=== PATIENT | female | born 1960 ===

== ENCOUNTER 2017-07-21 20:43 | Inpatient (IN) | payer BC ==
[~2017-07-21] VITALS: Ht 165.1 cm; Wt 65.5 kg
[2017-07-21] MEDS ORDERED: METHYL SALICYLATE/MENTHOL TOPICAL OINTMENT 29GM TUBE. TP PRN (21:00)
[2017-07-21] MEDS ORDERED: MAG HYDROX/AL HYDROX/SIMETH 30 ML ORAL.SUSP PO PRN (21:00)
[2017-07-21] MEDS ORDERED: MAGNESIUM HYDROXIDE 2,400 MG/30 ML ORAL.SUSP. PO PRN (21:00)
[2017-07-21] MEDS ORDERED: ACETAMINOPHEN 325 MG TABLET PO PRN (21:00)
[2017-07-21] MEDS ORDERED: CHOL500016 PO (21:15)
[2017-07-21] MEDS ORDERED: ASPI-630 PO (21:15)
[2017-07-21] MEDS ORDERED: SENN1TAB15 PO (21:15)
[2017-07-21] MEDS ORDERED: LISI2.5T PO (21:15)
[2017-07-21] MEDS ORDERED: ESZO1TAB9 PO (21:15)
[2017-07-21] MEDS ORDERED: VENL75TA PO (21:15)
[2017-07-21] MEDS ORDERED: POLY17PO5 PO (21:15)
[2017-07-21] MEDS ORDERED: BACL10TA PO (21:15)
[2017-07-21] MEDS ORDERED: ATOR20TA58 PO (21:15)
[2017-07-21] MEDS ORDERED: TRAM50TA PO (21:15)
[2017-07-21] MEDS ORDERED: GABA-586 PO (21:15)
[2017-07-21] MEDS ORDERED: CLOP75TA PO (21:15)
[2017-07-21 22:23] LABS: BASO # 0.1 x10^3/uL (0.0-0.2); BASO % 1 % (0-3); EOS # 0.2 x10^3/uL (0.0-0.7); EOS % 4 % (0-3); HEMATOCRIT 41.1 % (36.0-47.0); HEMOGLOBIN 13.9 g/dL (12.0-15.5); LYMPH # 2.6 x10^3/uL (1.0-4.8); LYMPH % 42 % (24-48); MEAN CORPUSCULAR HEMOGLOBIN 31 pg (25-35); MEAN CORPUSCULAR HGB CONC 34 g/dL (31-37); MEAN CORPUSCULAR VOLUME 91 fL (79-100); MONO # 0.4 x10^3/uL (0.0-1.1); MONO % 6 % (0-9); NEUT % 47 % (31-73); PLATELET COUNT 239 x10^3/uL (140-400); RED BLOOD COUNT 4.53 x10^6/uL (3.50-5.40); RED CELL DISTRIBUTION WIDTH 13.2 % (11.5-14.5); WHITE BLOOD COUNT 6.3 x10^3/uL (4.0-11.0)
[2017-07-21 22:34] LABS: ALBUMIN 3.6 g/dL (3.4-5.0); CALCIUM 9.4 mg/dL (8.5-10.1); CREATININE 0.5 mg/dL (0.6-1.0); GFR 126.3; POTASSIUM 3.7 mmol/L (3.5-5.1); TOTAL BILIRUBIN 0.3 mg/dL (0.2-1.0); TOTAL PROTEIN 7.2 g/dL (6.4-8.2)
[2017-07-21 23:17] VITALS: BP 106/69
[2017-07-21] MEDS: ZOLPIDEM 5 MG TABLET. PO SCH (23:20)
[2017-07-22 06:26] VITALS: BP 115/70
--- NOTE | 2017-07-22 07:50 | EKG ---
[address] [address] Test Date: 2017-07-22 Test Time: 07:32:39 Pat Name: ROVERTO BARR Department: Room: [address] [place] [address] Gender: Automatic Edger: : 1960 Requested By: DOROTA SMITH Order Number: [id number] Reading MD: Don Hodgson MD Measurements Intervals [place] Rate: P: LA: QRS: QRSD: T: QT: QTc: Interpretive Statements SR Electronically Signed On 07-26-2017 14:51:10 CONSTRUCTION SPECIALIST by Don Hodgson MD
[2017-07-22] MEDS ORDERED: VENLAFAXINE 75 MG TABLET. PO SCH (09:00)
[2017-07-22 13:06] LABS: THYROID STIM HORMONE (TSH) 0.024 uIU/mL (0.358-3.740)
--- NOTE | 2017-07-22 15:44 | PDOC1 ---
History of Present Illness Reason for Visit: Depression History of Present Illness Pt sent to [facility] for evaluation in [facility] unit due to suicidal thoughts. She had threatened to cut her wrists. She has a hx of CVA in November 2016, and has expressive aphasia and left hemiplegia because of it. She says her a year ago the day after Murali, and this time of year makes her sad. Today she says she is not wanting to kill herself. She has had a decreased appetite as well. Normally lives alone. She has been getting botox for her spasticities, but says it has not helped much. Denies CP, SOA, fever, n/v, abd pain, diarrhea, bloody stools, headache, sore throat, earache, night sweats, rash, or new numbness/weakness. Allergies: Coded Allergies: No Known Drug Allergies (Unverified , 07/21/17) Review of Systems Review Of Systems Fourteen system , review of systems has been reviewed. See HPI for pertinent positives and negative responses, other mora all other systems are negative, non pertinent or non contributory Allergies: Coded Allergies: No Known Drug Allergies (Unverified , 07/21/17) Medications Current Medications Acetaminophen (Tylenol) 650 mg PRN Q6HRS PRN PO PAIN / TEMP Last administered on 07/21/17 23:42; Start 07/21/17 at 21:00 Multi-Ingredient Ointment (Analgesic [place]) 1 tereso PRN QID PRN TP MUSCLE PAIN; Start 07/21/17 at 21:00 Al Hydroxide/Mg Hydroxide (Mylanta Plus Xs) 15 ml PRN AFTMEALHC PRN PO DYSPEPSIA; Start 07/21/17 at 21:00 Magnesium Hydroxide (Milk Of Magnesia) 2,400 mg PRN QHS PRN PO CONSTIPATION; Start 07/21/17 at 21:00 Venlafaxine HCl (Effexor) 75 mg DAILY PO Last administered on 07/22/17 07:58 ; Start 07/22/17 at 09:00 Zolpidem Tartrate (Ambien) 5 mg QHS PO Last administered on 07/21/17 23:20; Start 07/21/17 at 21:30 Aspirin (Children'S Aspirin) 81 mg DAILY PO ; Start 07/23/17 at 09:00; Status UNV Atorvastatin Calcium (Lipitor) 20 mg QHS PO ; Start 07/22/17 at 21:00; Status UNV Baclofen (Lioresal) 10 mg QID PO ; Start 07/22/17 at 17:00; Status UNV Clopidogrel Bisulfate (Plavix) 75 mg DAILY PO ; Start 07/23/17 at 09:00; Status UNV Gabapentin (Neurontin) 300 mg HS PO ; Start 07/22/17 at 21:00; Status UNV Lisinopril (Prinivil) 2.5 mg DAILY PO ; Start 07/23/17 at 09:00; Status UNV Polyethylene Glycol (miraLAX) 17 gm BID PO ; Start 07/22/17 at 21:00; Status UNV Senna/Docusate Sodium (Senna Plus) 1 tab BID PO ; Start 07/22/17 at 21:00; Status UNV Tramadol HCl (Ultram) 25 mg PRN Q6HRS PRN PO PAIN; Start 07/22/17 at 15:45; Status UNV Non-Formulary Medication 5,000 unit DAILY PRN PO Supplement; Start 07/22/17 at 15:45; Status UNV Active Scripts Active Reported Aspirin 81 Mg Tab.chew 81 Mg PO DAILY Atorvastatin Calcium 20 Mg Tablet 20 Mg PO QHS Baclofen 10 Mg Tablet 10 Mg PO QID Vitamin D3 (Cholecalciferol (Vitamin D3)) 5,000 Unit Tablet 5,000 Unit PO DAILY PRN Clopidogrel (Clopidogrel Bisulfate) 75 Mg Tablet 75 Mg PO DAILY Senna-S Tablet (Sennosides/Docusate Sodium) 1 Each Tablet 1 Tab PO BID Eszopiclone 1 Mg Tablet 1 Mg PO HS Gabapentin 300 Mg Capsule 300 Mg PO HS Lisinopril 2.5 Mg Tablet 2.5 Mg PO DAILY Miralax (Polyethylene Glycol 3350) 17 Gm Powd.pack 17 Gm PO BID Tramadol Hcl (Tramadol HCl) 50 Mg Tablet 25 Mg PO PRN Q6HRS PRN Venlafaxine Hcl 75 Mg Tablet 75 Mg PO DAILY Exam Vital Signs Vital Signs Date Time Temp Pulse Resp B/P (MAP) Pulse Ox O2 Delivery O2 Flow Rate FiO2 07/22/17 06:26 98.2 73 18 115/70 (85) 97 Room Air General Appearance: Alert, Oriented X3, Cooperative, No acute distress HEENT: Atraumatic, PERRLA, EOMI, Mucous membr. moist/pink, Other (Poor dentition; Neck supple, no JVD, no LAD) Respiratory: Clear to auscultation, Normal air movement Heart: Regular rate, Normal S1, Normal S2, No murmurs Abdominal: Normal bowel sounds, Soft, No tenderness, No hepatospenomegaly Extremities: No edema, Normal pulses Skin: No rashes, No breakdown Neuro: Other (expressive aphasia w/ left hemiplegia.) Psych/Mental Status: Mental status NL Assessment/Plan Assessment/Plan 1. Depression w/ SI: Per Dr. Chau. 2. Late effects of CVA: Continue current meds. 3. DVT proph: Pt on Plavix, wheels self in wheelchair, risk of DVT low, risk of bleeding high, no indication for Lovenox. 4. Low TSH: T4/T3 pending. Pt does not take thyroid medication. 5. Abnormal LFT's: Recheck in AM. Likely fatty liver, will consider liver sono if rising. COURSE Allergies Coded Allergies Type Severity Reaction Last Updated Verified No Known Drug Allergies 07/21/17 No Laboratory Tests Test 07/21/17 22:05 White Blood Count 6.3 x10^3/uL (4.0-11.0) Red Blood Count 4.53 x10^6/uL (3.50-5.40) Hemoglobin 13.9 g/dL (12.0-15.5) Hematocrit 41.1 % (36.0-47.0) Mean Corpuscular Volume 91 fL (79-100) Mean Corpuscular Hemoglobin 31 pg (25-35) Mean Corpuscular Hemoglobin Concent 34 g/dL (31-37) Red Cell Distribution Width 13.2 % (11.5-14.5) Platelet Count 239 x10^3/uL (140-400) Neutrophils (%) (Auto) 47 % (31-73) Lymphocytes (%) (Auto) 42 % (24-48) Monocytes (%) (Auto) 6 % (0-9) Eosinophils (%) (Auto) 4 % (0-3) Basophils (%) (Auto) 1 % (0-3) Neutrophils # (Auto) 3.0 x10^3uL (1.8-7.7) Lymphocytes # (Auto) 2.6 x10^3/uL (1.0-4.8) Monocytes # (Auto) 0.4 x10^3/uL (0.0-1.1) Eosinophils # (Auto) 0.2 x10^3/uL (0.0-0.7) Basophils # (Auto) 0.1 x10^3/uL (0.0-0.2) Sodium Level 142 mmol/L (136-145) Potassium Level 3.7 mmol/L (3.5-5.1) Chloride Level 104 mmol/L (98-107) Carbon Dioxide Level 28 mmol/L (21-32) Anion Gap 10 (6-14) Blood Urea Nitrogen 15 mg/dL (7-20) Creatinine 0.5 mg/dL (0.6-1.0) Estimated GFR (Cockcroft-Gault) 126.3 BUN/Creatinine Ratio 30 (6-20) Glucose Level 108 mg/dL (70-99) Calcium Level 9.4 mg/dL (8.5-10.1) Magnesium Level 2.0 mg/dL (1.8-2.4) Iron Level 67 ug/dL (50-170) Total Iron Binding Capacity 272 ug/dL (250-450) Iron Saturation 25 % (15-34) Total Bilirubin 0.3 mg/dL (0.2-1.0) Aspartate Amino Transf (AST/SGOT) 40 U/L (15-37) Alanine Aminotransferase (ALT/SGPT) 90 U/L (14-59) Alkaline Phosphatase 106 U/L (46-116) Total Protein 7.2 g/dL (6.4-8.2) Albumin 3.6 g/dL (3.4-5.0) Albumin/Globulin Ratio 1.0 (1.0-1.7) Triglycerides Level 52 mg/dL (0-150) Cholesterol Level 156 mg/dL (0-200) LDL Cholesterol, Calculated 83 mg/dL (0-100) VLDL Cholesterol, Calculated 10 mg/dL (0-40) Non-HDL Cholesterol Calculated 93 mg/dL (0-129) HDL Cholesterol 63 mg/dL (40-60) Cholesterol/HDL Ratio 2.0 Vitamin B12 Level 476 pg/mL (247-911) 25-Hydroxy Vitamin D Total 43.7 ng/mL (30-100) Thyroid Stimulating Hormone (TSH) 0.024 uIU/mL (0.358-3.740) Current Medications Medications (Trade) Dose Ordered Sig/Cassie Route PRN Reason Start Time Stop Time Status Last Admin Dose Admin Acetaminophen (Tylenol) 650 mg PRN Q6HRS PRN PO PAIN / TEMP 07/21/17 21:00 07/21/17 23:42 Multi-Ingredient Ointment (Analgesic [place]) 1 tereso PRN QID PRN TP MUSCLE PAIN 07/21/17 21:00 Al Hydroxide/Mg Hydroxide (Mylanta Plus Xs) 15 ml PRN AFTMEALHC PRN PO DYSPEPSIA 07/21/17 21:00 Magnesium Hydroxide (Milk Of Magnesia) 2,400 mg PRN QHS PRN PO CONSTIPATION 07/21/17 21:00 Venlafaxine HCl (Effexor) 75 mg DAILY PO 07/22/17 09:00 07/22/17 07:58 Zolpidem Tartrate (Ambien) 5 mg QHS PO 07/21/17 21:30 07/21/17 23:20 Aspirin (Children'S Aspirin) 81 mg DAILY PO 07/23/17 09:00 UNV Atorvastatin Calcium (Lipitor) 20 mg QHS PO 07/22/17 21:00 UNV Baclofen (Lioresal) 10 mg QID PO 07/22/17 17:00 UNV Clopidogrel Bisulfate (Plavix) 75 mg DAILY PO 07/23/17 09:00 UNV Gabapentin (Neurontin) 300 mg HS PO 07/22/17 21:00 UNV Lisinopril (Prinivil) 2.5 mg DAILY PO 07/23/17 09:00 UNV Polyethylene Glycol (miraLAX) 17 gm BID PO 07/22/17 21:00 UNV Senna/Docusate Sodium (Senna Plus) 1 tab BID PO 07/22/17 21:00 UNV Tramadol HCl (Ultram) 25 mg PRN Q6HRS PRN PO PAIN 07/22/17 15:45 UNV Non-Formulary Medication 5,000 unit DAILY PRN PO Supplement 07/22/17 15:45 UNV Vital Signs Date Time Temp Pulse Resp B/P (MAP) Pulse Ox O2 Delivery O2 Flow Rate FiO2 07/22/17 06:26 98.2 73 18 115/70 (85) 97 Room Air EKG: STUART MURDOCK MD Jul 22, 2017 15:44
[2017-07-22] MEDS ORDERED: traMADol 50 MG TABLET PO PRN (15:45)
[2017-07-22 16:03] LABS: BILIRUBIN,URINE NEG (NEG); CLARITY,URINE CLEAR; COLOR,URINE YELLOW; GLUCOSE,URINE NEG (NEG); NITRITE,URINE NEG (NEG); UROBILINOGEN,URINE 1 mg/dL (0.2 mg/dL)
[2017-07-22 16:04] LABS: BACTERIA,URINE FEW /HPF (0-FEW); RBC,URINE 0 /HPF (0-2); SQUAMOUS EPITHELIAL CELL,UR OCC /LPF
[2017-07-22 16:21] VITALS: BP 151/101
[2017-07-22] MEDS: CLOPIDOGREL BISULFATE 75 MG TABLET PO SCH (16:35)
[2017-07-22] MEDS: BACLOFEN 10 MG TABLET PO SCH ×2 (16:35→20:26)
[2017-07-22 18:07] LABS: T3 TOTAL 122 ng/dL (71-180); THYROXINE 8.5 ug/dL (4.5-12.0)
[2017-07-22] MEDS: ZOLPIDEM 5 MG TABLET. PO SCH (20:26)
[2017-07-22] MEDS: POLYETHYLENE GLYCOL 3350 17 GM PACKET. PO SCH (20:26)
[2017-07-22] MEDS: ATORVASTATIN CALCIUM 20 MG TABLET PO SCH (20:26)
[2017-07-22] MEDS: SENNOSIDES/DOCUSATE 8.6/50MG TABLET. PO SCH (20:27)
[2017-07-22] MEDS: MIRTAZAPINE 7.5 MG TABLET. PO SCH (20:27)
[2017-07-22] MEDS: GABAPENTIN 300 MG CAPSULE. PO SCH (20:27)
[2017-07-23 02:07] LABS: HEMOGLOBIN A1C 5.2 % (4.8-5.6)
[2017-07-23 06:14] VITALS: BP 102/67
[2017-07-23] MEDS: POLYETHYLENE GLYCOL 3350 17 GM PACKET. PO SCH ×2 (08:08→20:05)
[2017-07-23] MEDS: SENNOSIDES/DOCUSATE 8.6/50MG TABLET. PO SCH ×2 (08:08→20:05)
[2017-07-23] MEDS: BACLOFEN 10 MG TABLET PO SCH ×4 (08:08→20:05)
[2017-07-23] MEDS: CLOPIDOGREL BISULFATE 75 MG TABLET PO SCH (08:08)
[2017-07-23] MEDS: DULoxetine HCL 30 MG CAPSULE.DR PO SCH (08:10)
[2017-07-23] MEDS: ASPIRIN 81 MG TAB.CHEW PO SCH (08:10)
[2017-07-23] MEDS: CHOLECALCIFEROL (VITAMIN D3) 1,000 UNIT TABLET PO SCH (08:10)
[2017-07-23] MEDS: LISINOPRIL 2.5 MG TABLET PO SCH (08:12)
[2017-07-23 08:25] LABS: ALBUMIN 3.5 g/dL (3.4-5.0); DIRECT BILIRUBIN 0.1 mg/dL (0.0-0.2); TOTAL BILIRUBIN 0.5 mg/dL (0.2-1.0); TOTAL PROTEIN 6.8 g/dL (6.4-8.2)
--- NOTE | 2017-07-23 10:26 | PDOC ---
Exam Note: [place] Note: This is late entry for date of service 07/22/2017.Please also refer to the separate dictated note~for this date of service dictated separately.~Patient seen individually. Discussed the patient with Nursing staff reviewed the chart.~ Reviewed interim history and current functioning. Reviewed vital signs,~Labs/ Radiology~and current medications noted below. Continue current treatment with the changes noted in the dictated addendum note Assessment: Vital Signs: VS - Last 72 Hours, by Label Date Time Temp Pulse Resp B/P (MAP) Pulse Ox O2 Delivery O2 Flow Rate FiO2 07/23/17 08:12 69 102/67 07/23/17 06:14 96.9 69 16 102/67 (79) 96 07/22/17 16:21 97.9 95 151/101 (118) 97 Room Air 07/22/17 06:26 98.2 73 18 115/70 (85) 97 Room Air 07/21/17 23:17 97.4 79 20 106/69 (81) 97 Vital Signs Date Time Temp Pulse Resp B/P (MAP) Pulse Ox O2 Delivery O2 Flow Rate FiO2 07/23/17 08:12 69 102/67 07/23/17 06:14 96.9 16 96 07/22/17 16:21 Room Air I&O Intake and Output 07/23/17 07:00 Intake Total 0 ml Balance 0 ml Intake Oral 0 ml Labs: Laboratory Tests Test 07/22/17 15:15 07/23/17 07:36 Urine Collection Type Unknown Urine Color Yellow Urine Clarity Clear Urine pH 7.0 Urine Specific [place] 1.020 Urine Protein Neg (NEG-TRACE) Urine Glucose (UA) Neg mg/dL (NEG) Urine Ketones (Stick) Trace mg/dL (NEG) Urine Blood Neg (NEG) Urine Nitrite Neg (NEG) Urine Bilirubin Neg (NEG) Urine Urobilinogen Dipstick 1 mg/dL (0.2 mg/dL) Urine Leukocyte Esterase Neg (NEG) Urine RBC 0 /HPF (0-2) Urine WBC 1-4 /HPF (0-4) Urine Squamous Epithelial Cells Occ /LPF Urine Bacteria Few /HPF (0-FEW) Urine Mucus Slight /LPF Total Bilirubin 0.5 mg/dL (0.2-1.0) Direct Bilirubin 0.1 mg/dL (0.0-0.2) Aspartate Amino Transferase (AST) 54 U/L (15-37) H Alanine Aminotransferase (ALT) 110 U/L (14-59) H Alkaline Phosphatase 104 U/L (46-116) Total Protein 6.8 g/dL (6.4-8.2) Albumin 3.5 g/dL (3.4-5.0) Current Medications: Meds: Current Medications Acetaminophen (Tylenol) 650 mg PRN Q6HRS PRN PO PAIN / TEMP Last administered on 07/21/17 23:42; Start 07/21/17 at 21:00 Multi-Ingredient Ointment (Analgesic [place]) 1 tereso PRN QID PRN TP MUSCLE PAIN; Start 07/21/17 at 21:00 Al Hydroxide/Mg Hydroxide (Mylanta Plus Xs) 15 ml PRN AFTMEALHC PRN PO DYSPEPSIA; Start 07/21/17 at 21:00 Magnesium Hydroxide (Milk Of Magnesia) 2,400 mg PRN QHS PRN PO CONSTIPATION; Start 07/21/17 at 21:00 Venlafaxine HCl (Effexor) 75 mg DAILY PO Last administered on 07/22/17 07:58 ; Start 07/22/17 at 09:00; Stop 07/22/17 at 18:47; Status DC Zolpidem Tartrate (Ambien) 5 mg QHS PO Last administered on 07/22/17 20:26; Start 07/21/17 at 21:30 Aspirin (Children'S Aspirin) 81 mg DAILY PO Last administered on 07/23/17 08: 10; Start 07/23/17 at 09:00 Atorvastatin Calcium (Lipitor) 20 mg QHS PO Last administered on 07/22/17 20: 26; Start 07/22/17 at 21:00 Baclofen (Lioresal) 10 mg QID PO Last administered on 07/23/17 08:08; Start 07/22/17 at 17:00 Clopidogrel Bisulfate (Plavix) 75 mg DAILY PO Last administered on 07/23/17 08:08; Start 07/22/17 at 15:45 Gabapentin (Neurontin) 300 mg HS PO Last administered on 07/22/17 20:27; Start 07/22/17 at 21:00 Lisinopril (Prinivil) 2.5 mg DAILY PO ; Start 07/23/17 at 09:00 Polyethylene Glycol (miraLAX) 17 gm BID PO Last administered on 07/23/17 08: 08; Start 07/22/17 at 21:00 Senna/Docusate Sodium (Senna Plus) 1 tab BID PO Last administered on 08:08; Start 07/22/17 at 21:00 Tramadol HCl (Ultram) 25 mg PRN Q6HRS PRN PO PAIN; Start 07/22/17 at 15:45 Vitamin D (Vitamin D3) 5,000 unit DAILYWBKFT PO Last administered on 08:10; Start 07/23/17 at 08:00 Duloxetine HCl (Cymbalta) 30 mg DAILY PO Last administered on 07/23/17 08:10 ; Start 07/23/17 at 09:00 Mirtazapine (Remeron) 7.5 mg QHS PO Last administered on 07/22/17 20:27; Start 07/22/17 at 21:00 Active Scripts Active Reported Aspirin 81 Mg Tab.chew 81 Mg PO DAILY Atorvastatin Calcium 20 Mg Tablet 20 Mg PO QHS Baclofen 10 Mg Tablet 10 Mg PO QID Vitamin D3 (Cholecalciferol (Vitamin D3)) 5,000 Unit Tablet 5,000 Unit PO DAILY PRN Clopidogrel (Clopidogrel Bisulfate) 75 Mg Tablet 75 Mg PO DAILY Senna-S Tablet (Sennosides/Docusate Sodium) 1 Each Tablet 1 Tab PO BID Eszopiclone 1 Mg Tablet 1 Mg PO HS Gabapentin 300 Mg Capsule 300 Mg PO HS Lisinopril 2.5 Mg Tablet 2.5 Mg PO DAILY Miralax (Polyethylene Glycol 3350) 17 Gm Powd.pack 17 Gm PO BID Tramadol Hcl (Tramadol HCl) 50 Mg Tablet 25 Mg PO PRN Q6HRS PRN Venlafaxine Hcl 75 Mg Tablet 75 Mg PO DAILY I have reviewed the current psychotropics carefully including drug interactions. Risk benefit ratio favors no change other than as noted in my dictated progress note. Diagnosis: Problems: (1) Anxiety disorder (2) Major depressive disorder, recurrent episode (3) Impulse control disorder (4) Cerebrovascular accident (CVA) due to vascular occlusion DOROTA SMITH MD Jul 23, 2017 10:26
--- NOTE | 2017-07-23 14:30 | RAD ---
Ultrasound abdomen limited 07/23/2017 Clinical indication: Liver enzymes elevated. Comparison: None. Findings: Visualized pancreatic body unremarkable. Visualized upper IVC and abdominal aorta unremarkable. The liver is homogeneous in echotexture in the visualized portions with no discrete hepatic mass. No intra or extrahepatic bile or ductal dilatation. Common bile duct measures 4 mm. Right kidney measures 9.9 cm in length without collecting system dilatation. Prior cholecystectomy. Impression: Prior cholecystectomy without biliary ductal dilatation.
[2017-07-23 16:37] VITALS: BP 81/60
[2017-07-23] MEDS: MIRTAZAPINE 7.5 MG TABLET. PO SCH (20:05)
[2017-07-23] MEDS: ATORVASTATIN CALCIUM 20 MG TABLET PO SCH (20:05)
[2017-07-23] MEDS: ZOLPIDEM 5 MG TABLET. PO SCH (20:05)
[2017-07-23] MEDS: GABAPENTIN 300 MG CAPSULE. PO SCH (20:05)
--- NOTE | 2017-07-23 21:04 | HP ---
ADMIT DATE: 07/22/2017 PSYCHIATRIC ADMISSION HISTORY/EVALUATION This late entry for 07/22/2017 covers elements not covered in my initial note of 07/22/2017. IDENTIFYING DATA: The patient is a 57-year-old female referred to us from [facility] Emergency Room where she presented from [facility], referred by Dr. Yaquelin Aly, her primary care physician, psychiatrist on account of suicidal ideation after the patient made statements that she would "slit her wrists." Reportedly, she had a knife in her purse. She also threatened to overdose. She states that this time of the year is hard for her because of multiple psychosocial stressors and she has been feeling hopeless, helpless, worthless, depressed with drop in appetite, disturbed sleep, increasingly tearful and paranoid. CHIEF COMPLAINT: "Yes, I have been depressed. No, I will not kill myself. I have grandchildren." HISTORY OF PRESENT ILLNESS: The patient has a history of major depressive disorder with symptoms significantly worsening over the past 7-10 days. She had a CVA in 11/2016 leaving her with the left-sided paralysis and weakness and dysarthria and some expressive aphasia, all of which has been worsening her depressive symptoms. No homicidal ideation. No clear history of bipolar disorder. PAST PSYCHIATRIC HISTORY: The patient has been suicidal, on several occasions in the past. On two specific occasions, she was actively suicidal after the of her . MEDICAL HISTORY: Status post CVA, hypertension, dysphagia, cognitive communication deficits, neuropathy. ACCU-CHEKS: None. CODE STATUS: DNR. ALLERGIES: Negative. DIET: Regular, thin liquids. Meds, takes them whole. AMBULATES: Wheelchair with 1 assist. CURRENT PSYCHOTROPICS: Effexor 75 mg a day. FAMILY HISTORY: Noncontributory. SOCIAL HISTORY: No alcohol, drug abuse, physical, sexual or elder abuse history is noted. Not known to be a perpetrator. MENTAL STATUS EXAMINATION: The patient was seen individually evening of 07/22/2017 in her room at length. She is in her wheelchair, oriented to herself and situation. Speech is reflective of her dysarthria and some expressive aphasia. Mood and affect is depressed. She admits to feeling hopeless, helpless, worthless, but denies active suicidal or homicidal ideation. She is somewhat paranoid, tearful at times. Attention span short. Intellect average. Insight good. Judgment intact to standard questioning. REVIEW OF SYSTEMS: Ambulation impaired, in wheelchair, difficulty with expressing herself. No CV, , pulmonary, eye system symptoms on review. IMPRESSION: Major depressive disorder, recurrent with rule out psychotic features; anxiety disorder, unspecified; impulse control disorder, unspecified; cognitive disorder, unspecified. Rest as above. PLAN: Admit to geropsychiatry unit at [facility]. I will see the patient daily individually from a psychiatric standpoint. Medical followup per Dr. Baird/Dr. Moore. Continue the patient on her current psychotropics, change the Effexor to Cymbalta 30 mg a day and she has been sleeping poorly, add Remeron 7.5 mg p.o. at bedtime. Make further adjustments as clinically indicated. MAN Anu SMITH MD DR: MARLENI/lisette JOB#: [id number] / [id number]
--- NOTE | 2017-07-23 21:42 | PDOC ---
Exam Note: [place] Note: Please also refer to the separate dictated note~for this date of service dictated separately.~Patient seen individually. Discussed the patient with Nursing staff reviewed the chart.~Reviewed interim history and current functioning. Reviewed vital signs,~Labs/ Radiology~and current medications noted below. Continue current treatment with the changes noted in the dictated addendum note Assessment: Vital Signs: Vital Signs Date Time Temp Pulse Resp B/P (MAP) Pulse Ox O2 Delivery O2 Flow Rate FiO2 07/23/17 16:37 97.3 86 20 81/60 (67) 100 07/22/17 16:21 Room Air I&O Intake and Output 07/23/17 07:00 Intake Total 0 ml Balance 0 ml Intake Oral 0 ml Labs: Laboratory Tests Test 07/23/17 07:36 Total Bilirubin 0.5 mg/dL (0.2-1.0) Direct Bilirubin 0.1 mg/dL (0.0-0.2) Aspartate Amino Transferase (AST) 54 U/L (15-37) H Alanine Aminotransferase (ALT) 110 U/L (14-59) H Alkaline Phosphatase 104 U/L (46-116) Total Protein 6.8 g/dL (6.4-8.2) Albumin 3.5 g/dL (3.4-5.0) Current Medications: Meds: Current Medications Acetaminophen (Tylenol) 650 mg PRN Q6HRS PRN PO PAIN / TEMP Last administered on 07/21/17 23:42; Start 07/21/17 at 21:00 Multi-Ingredient Ointment (Analgesic [place]) 1 tereso PRN QID PRN TP MUSCLE PAIN; Start 07/21/17 at 21:00 Al Hydroxide/Mg Hydroxide (Mylanta Plus Xs) 15 ml PRN AFTMEALHC PRN PO DYSPEPSIA; Start 07/21/17 at 21:00 Magnesium Hydroxide (Milk Of Magnesia) 2,400 mg PRN QHS PRN PO CONSTIPATION; Start 07/21/17 at 21:00 Venlafaxine HCl (Effexor) 75 mg DAILY PO Last administered on 07/22/17 07:58 ; Start 07/22/17 at 09:00; Stop 07/22/17 at 18:47; Status DC Zolpidem Tartrate (Ambien) 5 mg QHS PO Last administered on 07/23/17 20:05; Start 07/21/17 at 21:30 Aspirin (Children'S Aspirin) 81 mg DAILY PO Last administered on 07/23/17 08: 10; Start 07/23/17 at 09:00 Atorvastatin Calcium (Lipitor) 20 mg QHS PO Last administered on 07/23/17 20: 05; Start 07/22/17 at 21:00 Baclofen (Lioresal) 10 mg QID PO Last administered on 07/23/17 20:05; Start 07/22/17 at 17:00 Clopidogrel Bisulfate (Plavix) 75 mg DAILY PO Last administered on 07/23/17 08:08; Start 07/22/17 at 15:45 Gabapentin (Neurontin) 300 mg HS PO Last administered on 07/23/17 20:05; Start 07/22/17 at 21:00 Lisinopril (Prinivil) 2.5 mg DAILY PO ; Start 07/23/17 at 09:00 Polyethylene Glycol (miraLAX) 17 gm BID PO Last administered on 07/23/17 20: 05; Start 07/22/17 at 21:00 Senna/Docusate Sodium (Senna Plus) 1 tab BID PO Last administered on 20:05; Start 07/22/17 at 21:00 Tramadol HCl (Ultram) 25 mg PRN Q6HRS PRN PO PAIN; Start 07/22/17 at 15:45 Vitamin D (Vitamin D3) 5,000 unit DAILYWBKFT PO Last administered on 08:10; Start 07/23/17 at 08:00 Duloxetine HCl (Cymbalta) 30 mg DAILY PO Last administered on 07/23/17 08:10 ; Start 07/23/17 at 09:00 Mirtazapine (Remeron) 7.5 mg QHS PO Last administered on 07/23/17 20:05; Start 07/22/17 at 21:00 Active Scripts Active Reported Aspirin 81 Mg Tab.chew 81 Mg PO DAILY Atorvastatin Calcium 20 Mg Tablet 20 Mg PO QHS Baclofen 10 Mg Tablet 10 Mg PO QID Vitamin D3 (Cholecalciferol (Vitamin D3)) 5,000 Unit Tablet 5,000 Unit PO DAILY PRN Clopidogrel (Clopidogrel Bisulfate) 75 Mg Tablet 75 Mg PO DAILY Senna-S Tablet (Sennosides/Docusate Sodium) 1 Each Tablet 1 Tab PO BID Eszopiclone 1 Mg Tablet 1 Mg PO HS Gabapentin 300 Mg Capsule 300 Mg PO HS Lisinopril 2.5 Mg Tablet 2.5 Mg PO DAILY Miralax (Polyethylene Glycol 3350) 17 Gm Powd.pack 17 Gm PO BID Tramadol Hcl (Tramadol HCl) 50 Mg Tablet 25 Mg PO PRN Q6HRS PRN Venlafaxine Hcl 75 Mg Tablet 75 Mg PO DAILY I have reviewed the current psychotropics carefully including drug interactions. Risk benefit ratio favors no change other than as noted in my dictated progress note. Diagnosis: Problems: (1) Anxiety disorder (2) Major depressive disorder, recurrent episode (3) Impulse control disorder (4) Cerebrovascular accident (CVA) due to vascular occlusion DOROTA SMITH MD Jul 23, 2017 21:42
[2017-07-24 05:48] VITALS: BP 124/84
[2017-07-24] MEDS: SENNOSIDES/DOCUSATE 8.6/50MG TABLET. PO SCH ×2 (07:25→20:06)
[2017-07-24] MEDS: POLYETHYLENE GLYCOL 3350 17 GM PACKET. PO SCH ×2 (07:25→20:06)
[2017-07-24] MEDS: ASPIRIN 81 MG TAB.CHEW PO SCH (07:25)
[2017-07-24] MEDS: LISINOPRIL 2.5 MG TABLET PO SCH (07:26)
[2017-07-24] MEDS: CLOPIDOGREL BISULFATE 75 MG TABLET PO SCH (07:26)
[2017-07-24] MEDS: BACLOFEN 10 MG TABLET PO SCH ×4 (07:26→20:06)
[2017-07-24] MEDS: DULoxetine HCL 30 MG CAPSULE.DR PO SCH (07:26)
[2017-07-24] MEDS: CHOLECALCIFEROL (VITAMIN D3) 1,000 UNIT TABLET PO SCH (07:27)
--- NOTE | 2017-07-24 08:46 | PN ---
DATE: 07/23/2017 This note covers elements not covered in my initial note of 07/23/2017. I met with the patient in the evening of 07/23/2017, slept 6-1/2 hours. Liver enzymes are elevated as are the liquids. We will defer to Dr. Wong. Sonogram of the abdomen was unremarkable. She has been withdrawn, admits to past suicidal ideation, denies current suicidal ideation. REVIEW OF SYSTEMS: Ambulation impaired, in wheelchair. No CV, , pulmonary, eye, ENT system symptoms on review. MENTAL STATUS EXAM: Oriented to herself and situation. Speech has some dysarthria and some expressive aphasia. Abstraction fair, computation impaired, language function intact. Mood and affect remains depressed. IMPRESSION: Major depressive disorder, recurrent. Rest unchanged. PLAN: Continue psychotropics as mentioned in my initial note, Cymbalta 30 mg a day, Remeron 7.5 mg at bedtime. MAN Anu SMITH MD DR: MARLENI/lisette JOB#: [id number] / [id number]
[2017-07-24 10:06] LABS: ALBUMIN 3.6 g/dL (3.4-5.0); DIRECT BILIRUBIN 0.1 mg/dL (0.0-0.2); TOTAL BILIRUBIN 0.3 mg/dL (0.2-1.0); TOTAL PROTEIN 7.3 g/dL (6.4-8.2)
[2017-07-24 16:06] VITALS: BP 113/80
[2017-07-24] MEDS: MIRTAZAPINE 7.5 MG TABLET. PO SCH (20:06)
[2017-07-24] MEDS: ZOLPIDEM 5 MG TABLET. PO SCH (20:06)
[2017-07-24] MEDS: ATORVASTATIN CALCIUM 20 MG TABLET PO SCH (20:06)
[2017-07-24] MEDS: GABAPENTIN 300 MG CAPSULE. PO SCH (20:06)
--- NOTE | 2017-07-24 20:12 | PDOC ---
Exam Note: [place] Note: Please also refer to the separate dictated note~for this date of service dictated separately.~Patient seen individually. Discussed the patient with Nursing staff reviewed the chart.~Reviewed interim history and current functioning. Reviewed vital signs,~Labs/ Radiology~and current medications noted below. Continue current treatment with the changes noted in the dictated addendum note Assessment: Vital Signs: Vital Signs Date Time Temp Pulse Resp B/P (MAP) Pulse Ox O2 Delivery O2 Flow Rate FiO2 07/24/17 16:06 97.6 78 16 113/80 (91) 96 07/22/17 16:21 Room Air I&O Intake and Output 07/24/17 07:00 Intake Total 600 ml Balance 600 ml Intake Oral 600 ml # Bowel Movements 2 Labs: Laboratory Tests Test 07/24/17 09:19 Total Bilirubin 0.3 mg/dL (0.2-1.0) Direct Bilirubin 0.1 mg/dL (0.0-0.2) Aspartate Amino Transferase (AST) 33 U/L (15-37) Alanine Aminotransferase (ALT) 98 U/L (14-59) H Alkaline Phosphatase 109 U/L (46-116) Total Protein 7.3 g/dL (6.4-8.2) Albumin 3.6 g/dL (3.4-5.0) Current Medications: Meds: Current Medications Acetaminophen (Tylenol) 650 mg PRN Q6HRS PRN PO PAIN / TEMP Last administered on 07/21/17 23:42; Start 07/21/17 at 21:00 Multi-Ingredient Ointment (Analgesic [place]) 1 tereso PRN QID PRN TP MUSCLE PAIN; Start 07/21/17 at 21:00 Al Hydroxide/Mg Hydroxide (Mylanta Plus Xs) 15 ml PRN AFTMEALHC PRN PO DYSPEPSIA; Start 07/21/17 at 21:00 Magnesium Hydroxide (Milk Of Magnesia) 2,400 mg PRN QHS PRN PO CONSTIPATION; Start 07/21/17 at 21:00 Venlafaxine HCl (Effexor) 75 mg DAILY PO Last administered on 07/22/17 07:58 ; Start 07/22/17 at 09:00; Stop 07/22/17 at 18:47; Status DC Zolpidem Tartrate (Ambien) 5 mg QHS PO Last administered on 07/24/17 20:06; Start 07/21/17 at 21:30 Aspirin (Children'S Aspirin) 81 mg DAILY PO Last administered on 07/24/17 07: 25; Start 07/23/17 at 09:00 Atorvastatin Calcium (Lipitor) 20 mg QHS PO Last administered on 07/24/17 20: 06; Start 07/22/17 at 21:00 Baclofen (Lioresal) 10 mg QID PO Last administered on 07/24/17 20:06; Start 07/22/17 at 17:00 Clopidogrel Bisulfate (Plavix) 75 mg DAILY PO Last administered on 07/24/17 07:26; Start 07/22/17 at 15:45 Gabapentin (Neurontin) 300 mg HS PO Last administered on 07/24/17 20:06; Start 07/22/17 at 21:00 Lisinopril (Prinivil) 2.5 mg DAILY PO Last administered on 07/24/17 07:26; Start 07/23/17 at 09:00 Polyethylene Glycol (miraLAX) 17 gm BID PO Last administered on 07/24/17 20: 06; Start 07/22/17 at 21:00 Senna/Docusate Sodium (Senna Plus) 1 tab BID PO Last administered on 20:06; Start 07/22/17 at 21:00 Tramadol HCl (Ultram) 25 mg PRN Q6HRS PRN PO PAIN; Start 07/22/17 at 15:45 Vitamin D (Vitamin D3) 5,000 unit DAILYWBKFT PO Last administered on 07:27; Start 07/23/17 at 08:00 Duloxetine HCl (Cymbalta) 30 mg DAILY PO Last administered on 07/24/17 07:26 ; Start 07/23/17 at 09:00; Stop 07/24/17 at 19:44; Status DC Mirtazapine (Remeron) 7.5 mg QHS PO Last administered on 07/24/17 20:06; Start 07/22/17 at 21:00 Duloxetine HCl (Cymbalta) 60 mg DAILY PO ; Start 07/25/17 at 09:00 Active Scripts Active Reported Aspirin 81 Mg Tab.chew 81 Mg PO DAILY Atorvastatin Calcium 20 Mg Tablet 20 Mg PO QHS Baclofen 10 Mg Tablet 10 Mg PO QID Vitamin D3 (Cholecalciferol (Vitamin D3)) 5,000 Unit Tablet 5,000 Unit PO DAILY PRN Clopidogrel (Clopidogrel Bisulfate) 75 Mg Tablet 75 Mg PO DAILY Senna-S Tablet (Sennosides/Docusate Sodium) 1 Each Tablet 1 Tab PO BID Eszopiclone 1 Mg Tablet 1 Mg PO HS Gabapentin 300 Mg Capsule 300 Mg PO HS Lisinopril 2.5 Mg Tablet 2.5 Mg PO DAILY Miralax (Polyethylene Glycol 3350) 17 Gm Powd.pack 17 Gm PO BID Tramadol Hcl (Tramadol HCl) 50 Mg Tablet 25 Mg PO PRN Q6HRS PRN Venlafaxine Hcl 75 Mg Tablet 75 Mg PO DAILY I have reviewed the current psychotropics carefully including drug interactions. Risk benefit ratio favors no change other than as noted in my dictated progress note. Diagnosis: Problems: (1) Anxiety disorder (2) Major depressive disorder, recurrent episode (3) Impulse control disorder (4) Cerebrovascular accident (CVA) due to vascular occlusion DOROTA SMITH MD Jul 24, 2017 20:12
[2017-07-25 06:33] VITALS: BP 102/56
[2017-07-25] MEDS: LISINOPRIL 2.5 MG TABLET PO SCH (09:00)
[2017-07-25] MEDS: CHOLECALCIFEROL (VITAMIN D3) 1,000 UNIT TABLET PO SCH (09:01)
[2017-07-25] MEDS: CLOPIDOGREL BISULFATE 75 MG TABLET PO SCH (09:02)
[2017-07-25] MEDS: ASPIRIN 81 MG TAB.CHEW PO SCH (09:02)
[2017-07-25] MEDS: SENNOSIDES/DOCUSATE 8.6/50MG TABLET. PO SCH ×2 (09:02→20:20)
[2017-07-25] MEDS: BACLOFEN 10 MG TABLET PO SCH ×4 (09:02→20:19)
[2017-07-25] MEDS: POLYETHYLENE GLYCOL 3350 17 GM PACKET. PO SCH ×2 (09:02→20:22)
[2017-07-25] MEDS: DULoxetine HCL 30 MG CAPSULE.DR PO SCH (09:03)
[2017-07-25 15:59] VITALS: BP 100/57
--- NOTE | 2017-07-25 20:02 | PDOC ---
Exam Note: [place] Note: Please also refer to the separate dictated note~for this date of service dictated separately.~Patient seen individually. Discussed the patient with Nursing staff reviewed the chart.~Reviewed interim history and current functioning. Reviewed vital signs,~Labs/ Radiology~and current medications noted below. Continue current treatment with the changes noted in the dictated addendum note Assessment: Vital Signs: Vital Signs Date Time Temp Pulse Resp B/P (MAP) Pulse Ox O2 Delivery O2 Flow Rate FiO2 07/25/17 15:59 97.6 74 16 100/57 (71) 98 07/22/17 16:21 Room Air I&O Intake and Output 07/25/17 07:00 Intake Total 960 ml Balance 960 ml Intake Oral 960 ml # Voids 2 Current Medications: Meds: Current Medications Acetaminophen (Tylenol) 650 mg PRN Q6HRS PRN PO PAIN / TEMP Last administered on 07/21/17 23:42; Start 07/21/17 at 21:00 Multi-Ingredient Ointment (Analgesic [place]) 1 tereso PRN QID PRN TP MUSCLE PAIN; Start 07/21/17 at 21:00 Al Hydroxide/Mg Hydroxide (Mylanta Plus Xs) 15 ml PRN AFTMEALHC PRN PO DYSPEPSIA; Start 07/21/17 at 21:00 Magnesium Hydroxide (Milk Of Magnesia) 2,400 mg PRN QHS PRN PO CONSTIPATION; Start 07/21/17 at 21:00 Venlafaxine HCl (Effexor) 75 mg DAILY PO Last administered on 07/22/17 07:58 ; Start 07/22/17 at 09:00; Stop 07/22/17 at 18:47; Status DC Zolpidem Tartrate (Ambien) 5 mg QHS PO Last administered on 07/24/17 20:06; Start 07/21/17 at 21:30 Aspirin (Children'S Aspirin) 81 mg DAILY PO Last administered on 07/25/17 09: 02; Start 07/23/17 at 09:00 Atorvastatin Calcium (Lipitor) 20 mg QHS PO Last administered on 07/24/17 20: 06; Start 07/22/17 at 21:00 Baclofen (Lioresal) 10 mg QID PO Last administered on 07/25/17 17:00; Start 07/22/17 at 17:00 Clopidogrel Bisulfate (Plavix) 75 mg DAILY PO Last administered on 07/25/17 09:02; Start 07/22/17 at 15:45 Gabapentin (Neurontin) 300 mg HS PO Last administered on 07/24/17 20:06; Start 07/22/17 at 21:00 Lisinopril (Prinivil) 2.5 mg DAILY PO Last administered on 07/24/17 07:26; Start 07/23/17 at 09:00 Polyethylene Glycol (miraLAX) 17 gm BID PO Last administered on 07/25/17 09: 02; Start 07/22/17 at 21:00 Senna/Docusate Sodium (Senna Plus) 1 tab BID PO Last administered on 09:02; Start 07/22/17 at 21:00 Tramadol HCl (Ultram) 25 mg PRN Q6HRS PRN PO PAIN; Start 07/22/17 at 15:45 Vitamin D (Vitamin D3) 5,000 unit DAILYWBKFT PO Last administered on 09:01; Start 07/23/17 at 08:00 Duloxetine HCl (Cymbalta) 30 mg DAILY PO Last administered on 07/24/17 07:26 ; Start 07/23/17 at 09:00; Stop 07/24/17 at 19:44; Status DC Mirtazapine (Remeron) 7.5 mg QHS PO Last administered on 07/24/17 20:06; Start 07/22/17 at 21:00 Duloxetine HCl (Cymbalta) 60 mg DAILY PO Last administered on 07/25/17 09:03 ; Start 07/25/17 at 09:00 Active Scripts Active Reported Aspirin 81 Mg Tab.chew 81 Mg PO DAILY Atorvastatin Calcium 20 Mg Tablet 20 Mg PO QHS Baclofen 10 Mg Tablet 10 Mg PO QID Vitamin D3 (Cholecalciferol (Vitamin D3)) 5,000 Unit Tablet 5,000 Unit PO DAILY PRN Clopidogrel (Clopidogrel Bisulfate) 75 Mg Tablet 75 Mg PO DAILY Senna-S Tablet (Sennosides/Docusate Sodium) 1 Each Tablet 1 Tab PO BID Eszopiclone 1 Mg Tablet 1 Mg PO HS Gabapentin 300 Mg Capsule 300 Mg PO HS Lisinopril 2.5 Mg Tablet 2.5 Mg PO DAILY Miralax (Polyethylene Glycol 3350) 17 Gm Powd.pack 17 Gm PO BID Tramadol Hcl (Tramadol HCl) 50 Mg Tablet 25 Mg PO PRN Q6HRS PRN Venlafaxine Hcl 75 Mg Tablet 75 Mg PO DAILY I have reviewed the current psychotropics carefully including drug interactions. Risk benefit ratio favors no change other than as noted in my dictated progress note. Diagnosis: Problems: (1) Anxiety disorder (2) Major depressive disorder, recurrent episode (3) Impulse control disorder (4) Cerebrovascular accident (CVA) due to vascular occlusion DOROTA SMITH MD Jul 25, 2017 20:02
[2017-07-25] MEDS: GABAPENTIN 300 MG CAPSULE. PO SCH (20:19)
[2017-07-25] MEDS: ATORVASTATIN CALCIUM 20 MG TABLET PO SCH (20:19)
[2017-07-25] MEDS: MIRTAZAPINE 7.5 MG TABLET. PO SCH (20:19)
[2017-07-25] MEDS: ZOLPIDEM 5 MG TABLET. PO SCH (20:19)
[2017-07-25] MEDS ORDERED: ACET325T9 PO (21:01)
[2017-07-25] MEDS ORDERED: DULO60CA6 PO (21:02)
[2017-07-25] MEDS ORDERED: MAG355OR17 PO (21:03)
[2017-07-25] MEDS ORDERED: MAGN2400 PO (21:03)
[2017-07-25] MEDS ORDERED: METH29OI TP (21:04)
[2017-07-25] MEDS ORDERED: MIRT15TA3 PO (21:04)
--- NOTE | 2017-07-26 04:10 | PN ---
DATE: 07/24/2017 This late entry for 07/24/2017, covers elements not covered in my initial note of 07/24/2017. SUBJECTIVE: I met with the patient the evening of 07/24/2017. Overall, the patient denies active suicidal ideation. Her sons visited her and she was talking about wanting to go back to [place]. She remains somewhat depressed and we processed cognitive behavioral ways to improve her mood. Family seems to think that she needs placement. REVIEW OF SYSTEMS: Ambulation impaired, in wheelchair, status post CVA. No CV, , pulmonary, eye system symptoms on review. MENTAL STATUS EXAMINATION: Reasonably oriented. She has some dysarthria and some expressive aphasia. Abstraction fair, computation impaired, language function intact. Mood and affect still depressed, but improved. IMPRESSION: Major depressive disorder, recurrent. Rest unchanged from initial note. PLAN: Increase Cymbalta to 60 mg a day, maintain Remeron 7.5 mg at bedtime. Consider augmentation with Abilify later if needed. Arrange placement per social service staff. DOROTA SMITH MD DR: MARLENI/lisette JOB#: [id number] / [id number]
[2017-07-26 06:22] VITALS: BP 162/89
[2017-07-26] MEDS: SENNOSIDES/DOCUSATE 8.6/50MG TABLET. PO SCH ×2 (08:45→20:15)
[2017-07-26] MEDS: BACLOFEN 10 MG TABLET PO SCH ×4 (08:45→20:15)
[2017-07-26] MEDS: ASPIRIN 81 MG TAB.CHEW PO SCH (08:45)
[2017-07-26] MEDS: POLYETHYLENE GLYCOL 3350 17 GM PACKET. PO SCH ×2 (08:45→20:15)
[2017-07-26] MEDS: DULoxetine HCL 30 MG CAPSULE.DR PO SCH (08:45)
[2017-07-26] MEDS: LISINOPRIL 2.5 MG TABLET PO SCH (08:45)
[2017-07-26] MEDS: CHOLECALCIFEROL (VITAMIN D3) 1,000 UNIT TABLET PO SCH (08:45)
[2017-07-26] MEDS: CLOPIDOGREL BISULFATE 75 MG TABLET PO SCH (08:45)
[2017-07-26 15:39] VITALS: BP 121/90
--- NOTE | 2017-07-26 20:06 | PDOC ---
Exam Note: [place] Note: Please also refer to the separate dictated note~for this date of service dictated separately.~Patient seen individually. Discussed the patient with Nursing staff reviewed the chart.~Reviewed interim history and current functioning. Reviewed vital signs,~Labs/ Radiology~and current medications noted below. Continue current treatment with the changes noted in the dictated addendum note Assessment: Vital Signs: Vital Signs Date Time Temp Pulse Resp B/P (MAP) Pulse Ox O2 Delivery O2 Flow Rate FiO2 07/26/17 15:39 97.1 79 16 121/90 (100) 96 07/22/17 16:21 Room Air I&O Intake and Output 07/26/17 07:00 Intake Total 960 ml Balance 960 ml Intake Oral 960 ml Current Medications: Meds: Current Medications Acetaminophen (Tylenol) 650 mg PRN Q6HRS PRN PO PAIN / TEMP Last administered on 07/21/17 23:42; Start 07/21/17 at 21:00 Multi-Ingredient Ointment (Analgesic [place]) 1 haris PRN QID PRN TP MUSCLE PAIN; Start 07/21/17 at 21:00 Al Hydroxide/Mg Hydroxide (Mylanta Plus Xs) 15 ml PRN AFTMEALHC PRN PO DYSPEPSIA; Start 07/21/17 at 21:00 Magnesium Hydroxide (Milk Of Magnesia) 2,400 mg PRN QHS PRN PO CONSTIPATION; Start 07/21/17 at 21:00 Venlafaxine HCl (Effexor) 75 mg DAILY PO Last administered on 07/22/17 07:58 ; Start 07/22/17 at 09:00; Stop 07/22/17 at 18:47; Status DC Zolpidem Tartrate (Ambien) 5 mg QHS PO Last administered on 07/25/17 20:19; Start 07/21/17 at 21:30 Aspirin (Children'S Aspirin) 81 mg DAILY PO Last administered on 07/26/17 08: 45; Start 07/23/17 at 09:00 Atorvastatin Calcium (Lipitor) 20 mg QHS PO Last administered on 07/25/17 20: 19; Start 07/22/17 at 21:00 Baclofen (Lioresal) 10 mg QID PO Last administered on 07/26/17 17:56; Start 07/22/17 at 17:00 Clopidogrel Bisulfate (Plavix) 75 mg DAILY PO Last administered on 07/26/17 08:45; Start 07/22/17 at 15:45 Gabapentin (Neurontin) 300 mg HS PO Last administered on 07/25/17 20:19; Start 07/22/17 at 21:00 Lisinopril (Prinivil) 2.5 mg DAILY PO Last administered on 07/26/17 08:45; Start 07/23/17 at 09:00 Polyethylene Glycol (miraLAX) 17 gm BID PO Last administered on 07/26/17 08: 45; Start 07/22/17 at 21:00 Senna/Docusate Sodium (Senna Plus) 1 tab BID PO Last administered on 08:45; Start 07/22/17 at 21:00 Tramadol HCl (Ultram) 25 mg PRN Q6HRS PRN PO PAIN; Start 07/22/17 at 15:45 Vitamin D (Vitamin D3) 5,000 unit DAILYWBKFT PO Last administered on 08:45; Start 07/23/17 at 08:00 Duloxetine HCl (Cymbalta) 30 mg DAILY PO Last administered on 07/24/17 07:26 ; Start 07/23/17 at 09:00; Stop 07/24/17 at 19:44; Status DC Mirtazapine (Remeron) 7.5 mg QHS PO Last administered on 07/25/17 20:19; Start 07/22/17 at 21:00 Duloxetine HCl (Cymbalta) 60 mg DAILY PO Last administered on 07/26/17 08:45 ; Start 07/25/17 at 09:00 Active Scripts Active Reported Mirtazapine 15 Mg Tablet 7.5 Mg PO HS Analgesic [place] (Methyl Salicylate/Menthol) 28 Gm Oint...g. 1 [place] TP PRN QID PRN Milk Of Magnesia (Magnesium Hydroxide) 2,400 Mg/10 Ml Oral.susp 2,400 Mg PO PRN QHS PRN Advanced Antacid Liquid (Mag Hydrox/Al Hydrox/Simeth) 355 Ml Oral.susp 15 Ml PO PRN AFTMEALHC PRN Cymbalta (Duloxetine Hcl) 60 Mg Capsule.dr 60 Mg PO DAILY Tylenol (Acetaminophen) 325 Mg Tablet 650 Mg PO PRN Q6HRS PRN Aspirin 81 Mg Tab.chew 81 Mg PO DAILY Atorvastatin Calcium 20 Mg Tablet 20 Mg PO QHS Baclofen 10 Mg Tablet 10 Mg PO QID Vitamin D3 (Cholecalciferol (Vitamin D3)) 5,000 Unit Tablet 5,000 Unit PO DAILY PRN Clopidogrel (Clopidogrel Bisulfate) 75 Mg Tablet 75 Mg PO DAILY Senna-S Tablet (Sennosides/Docusate Sodium) 1 Each Tablet 1 Tab PO BID Eszopiclone 1 Mg Tablet 1 Mg PO HS Gabapentin 300 Mg Capsule 300 Mg PO HS Lisinopril 2.5 Mg Tablet 2.5 Mg PO DAILY Miralax (Polyethylene Glycol 3350) 17 Gm Powd.pack 17 Gm PO BID Tramadol Hcl (Tramadol HCl) 50 Mg Tablet 25 Mg PO PRN Q6HRS PRN Venlafaxine Hcl 75 Mg Tablet 75 Mg PO DAILY I have reviewed the current psychotropics carefully including drug interactions. Risk benefit ratio favors no change other than as noted in my dictated progress note. Diagnosis: Problems: (1) Anxiety disorder (2) Major depressive disorder, recurrent episode (3) Impulse control disorder (4) Cerebrovascular accident (CVA) due to vascular occlusion DOROTA SMITH MD Jul 26, 2017 20:06
[2017-07-26] MEDS: ZOLPIDEM 5 MG TABLET. PO SCH (20:14)
[2017-07-26] MEDS: GABAPENTIN 300 MG CAPSULE. PO SCH (20:15)
[2017-07-26] MEDS: MIRTAZAPINE 7.5 MG TABLET. PO SCH (20:15)
[2017-07-26] MEDS: ATORVASTATIN CALCIUM 20 MG TABLET PO SCH (20:15)
--- NOTE | 2017-07-27 04:21 | PN ---
DATE: 07/25/2017 PSYCHIATRIC PROGRESS NOTES SUBJECTIVE: This late entry 07/25/2017 covers elements not covered in my initial note 07/25/2017. Met with the patient in the evening of 07/25/2017. Overall, the patient still remains somewhat withdrawn, tearful at times, gets frustrated, equivocates on her suicidal ideation, though she denies active thoughts of wanting to hurt herself. She has been cooperative with physical therapy and occupational therapy. REVIEW OF SYSTEMS: Ambulation impaired, in wheelchair, difficulty expressing herself due to dysarthria and expressive aphasia. Abstraction fair, computation impaired, language function intact. Mood and affect still depressed, but showing improvement. LABORATORY DATA: Reviewed. IMPRESSION: Major depressive disorder in partial remission. Rest unchanged. PLAN: Continue Cymbalta 60 mg a day, Remeron 7.5 mg p.o. at bedtime. Consider augmentation with Abilify. Discussed with social service staff on 2 separate occasions. Tentative transition to a lower level of care on 07/27/2017. MAN Anu SMITH MD DR: MARLENI/lisette JOB#: [id number] / [id number]
[2017-07-27 05:52] VITALS: BP 92/60
[2017-07-27 07:42] VITALS: BP 167/77
[2017-07-27] MEDS: POLYETHYLENE GLYCOL 3350 17 GM PACKET. PO SCH (08:57)
[2017-07-27 08:58] VITALS: BP 167/77
[2017-07-27] MEDS: CLOPIDOGREL BISULFATE 75 MG TABLET PO SCH (08:58)
[2017-07-27] MEDS: DULoxetine HCL 30 MG CAPSULE.DR PO SCH (08:58)
[2017-07-27] MEDS: ASPIRIN 81 MG TAB.CHEW PO SCH (08:58)
[2017-07-27] MEDS: CHOLECALCIFEROL (VITAMIN D3) 1,000 UNIT TABLET PO SCH (08:58)
[2017-07-27] MEDS: BACLOFEN 10 MG TABLET PO SCH ×2 (08:58→13:18)
[2017-07-27] MEDS: LISINOPRIL 2.5 MG TABLET PO SCH (08:58)
[2017-07-27] MEDS: SENNOSIDES/DOCUSATE 8.6/50MG TABLET. PO SCH (08:58)
--- NOTE | 2017-07-27 18:12 | PDOC ---
Exam Note: [place] Note: Please also refer to the separate dictated note~for this date of service dictated separately.~Patient seen individually. Discussed the patient with Nursing staff reviewed the chart.~Reviewed interim history and current functioning. Reviewed vital signs,~Labs/ Radiology~and current medications noted below. Continue current treatment with the changes noted in the dictated addendum note Assessment: Vital Signs: Vital Signs Date Time Temp Pulse Resp B/P (MAP) Pulse Ox O2 Delivery O2 Flow Rate FiO2 07/27/17 08:58 58 167/77 07/27/17 05:52 97.4 18 99 07/22/17 16:21 Room Air I&O Intake and Output 07/27/17 07:00 Intake Total 960 ml Balance 960 ml Intake Oral 960 ml # Voids 2 Current Medications: Meds: Current Medications Acetaminophen (Tylenol) 650 mg PRN Q6HRS PRN PO PAIN / TEMP Last administered on 07/21/17 23:42; Start 07/21/17 at 21:00; Stop 07/27/17 at 14:14; Status DC Multi-Ingredient Ointment (Analgesic [place]) 1 haris PRN QID PRN TP MUSCLE PAIN; Start 07/21/17 at 21:00; Stop 07/27/17 at 14:14; Status DC Al Hydroxide/Mg Hydroxide (Mylanta Plus Xs) 15 ml PRN AFTMEALHC PRN PO DYSPEPSIA; Start 07/21/17 at 21:00; Stop 07/27/17 at 14:14; Status DC Magnesium Hydroxide (Milk Of Magnesia) 2,400 mg PRN QHS PRN PO CONSTIPATION; Start 07/21/17 at 21:00; Stop 07/27/17 at 14:14; Status DC Venlafaxine HCl (Effexor) 75 mg DAILY PO Last administered on 07/22/17 07:58 ; Start 07/22/17 at 09:00; Stop 07/22/17 at 18:47; Status DC Zolpidem Tartrate (Ambien) 5 mg QHS PO Last administered on 07/26/17 20:14; Start 07/21/17 at 21:30; Stop 07/27/17 at 14:14; Status DC Aspirin (Children'S Aspirin) 81 mg DAILY PO Last administered on 12/20/17at 08: 58; Start 07/23/17 at 09:00; Stop 07/27/17 at 14:14; Status DC Atorvastatin Calcium (Lipitor) 20 mg QHS PO Last administered on 07/26/17 20: 15; Start 07/22/17 at 21:00; Stop 07/27/17 at 14:14; Status DC Baclofen (Lioresal) 10 mg QID PO Last administered on 07/27/17 13:18; Start 07/22/17 at 17:00; Stop 07/27/17 at 14:14; Status DC Clopidogrel Bisulfate (Plavix) 75 mg DAILY PO Last administered on 07/27/17 08:58; Start 07/22/17 at 15:45; Stop 07/27/17 at 14:14; Status DC Gabapentin (Neurontin) 300 mg HS PO Last administered on 07/26/17 20:15; Start 07/22/17 at 21:00; Stop 07/27/17 at 14:14; Status DC Lisinopril (Prinivil) 2.5 mg DAILY PO Last administered on 07/27/17 08:58; Start 07/23/17 at 09:00; Stop 07/27/17 at 14:14; Status DC Polyethylene Glycol (miraLAX) 17 gm BID PO Last administered on 07/27/17 08: 57; Start 07/22/17 at 21:00; Stop 07/27/17 at 14:14; Status DC Senna/Docusate Sodium (Senna Plus) 1 tab BID PO Last administered on 08:58; Start 07/22/17 at 21:00; Stop 07/27/17 at 14:14; Status DC Tramadol HCl (Ultram) 25 mg PRN Q6HRS PRN PO PAIN; Start 07/22/17 at 15:45; Stop 07/27/17 at 14:14; Status DC Vitamin D (Vitamin D3) 5,000 unit DAILYWBKFT PO Last administered on 08:58; Start 07/23/17 at 08:00; Stop 07/27/17 at 14:14; Status DC Duloxetine HCl (Cymbalta) 30 mg DAILY PO Last administered on 07/24/17 07:26 ; Start 07/23/17 at 09:00; Stop 07/24/17 at 19:44; Status DC Mirtazapine (Remeron) 7.5 mg QHS PO Last administered on 07/26/17 20:15; Start 07/22/17 at 21:00; Stop 07/27/17 at 14:14; Status DC Duloxetine HCl (Cymbalta) 60 mg DAILY PO Last administered on 07/27/17 08:58 ; Start 07/25/17 at 09:00; Stop 07/27/17 at 14:14; Status DC Active Scripts Active Reported Mirtazapine 15 Mg Tablet 7.5 Mg PO HS Analgesic [place] (Methyl Salicylate/Menthol) 28 Gm Oint...g. 1 [place] TP PRN QID PRN Milk Of Magnesia (Magnesium Hydroxide) 2,400 Mg/10 Ml Oral.susp 2,400 Mg PO PRN QHS PRN Advanced Antacid Liquid (Mag Hydrox/Al Hydrox/Simeth) 355 Ml Oral.susp 15 Ml PO PRN AFTMEALHC PRN Cymbalta (Duloxetine Hcl) 60 Mg Capsule.dr 60 Mg PO DAILY Tylenol (Acetaminophen) 325 Mg Tablet 650 Mg PO PRN Q6HRS PRN Aspirin 81 Mg Tab.chew 81 Mg PO DAILY Atorvastatin Calcium 20 Mg Tablet 20 Mg PO QHS Baclofen 10 Mg Tablet 10 Mg PO QID Vitamin D3 (Cholecalciferol (Vitamin D3)) 5,000 Unit Tablet 5,000 Unit PO DAILY Clopidogrel (Clopidogrel Bisulfate) 75 Mg Tablet 75 Mg PO DAILY Senna-S Tablet (Sennosides/Docusate Sodium) 1 Each Tablet 1 Tab PO BID Eszopiclone 1 Mg Tablet 1 Mg PO HS Gabapentin 300 Mg Capsule 300 Mg PO HS Lisinopril 2.5 Mg Tablet 2.5 Mg PO DAILY Miralax (Polyethylene Glycol 3350) 17 Gm Powd.pack 17 Gm PO BID Tramadol Hcl (Tramadol HCl) 50 Mg Tablet 25 Mg PO PRN Q6HRS PRN I have reviewed the current psychotropics carefully including drug interactions. Risk benefit ratio favors no change other than as noted in my dictated progress note. Diagnosis: Problems: (1) Cerebrovascular accident (CVA) due to vascular occlusion (2) Impulse control disorder (3) Anxiety disorder (4) Major depressive disorder, recurrent episode DOROTA SMITH MD Jul 27, 2017 18:12
--- NOTE | 2017-07-28 00:26 | PN ---
DATE: 07/26/2017 This is a late entry 07/26/2017 covers elements not covered in my initial note 07/26/2017, met with the patient evening of 07/26/2017. I had also discussed the patient for telephone review for hospitalization with a psychiatrist via the insurance company and another inpatient day was authorized for tentative discharge 07/27/2017. The patient is compliant with her medication, remains depressed, anxious, somewhat labile in her mood. Ambulation impaired, difficulty expressing herself due to dysarthria, expressive aphasia. No CV, , pulmonary, eye system symptoms on review. MENTAL STATUS EXAM: Reasonably oriented. Speech is understandable, but compromised due to the dysarthria, abstraction fair, computation impaired, language function intact. Mood and affect still depressed, tearful. No active suicidal ideation. LABORATORY DATA: Reviewed. IMPRESSION: Major depressive disorder with psychotic features in partial remission; anxiety disorder, unspecified. Rest unchanged. PLAN: Continue current psychotropics, Cymbalta 60 mg a day, Remeron 7.5 at bedtime, Ambien 5 mg at bedtime. Transition back to [facility] on 07/27/2017. MAN Anu SMITH MD DR: MARLENI/lisette JOB#: [id number] / [id number]
--- NOTE | 2017-07-29 10:15 | DS ---
DATE OF DISCHARGE: 07/27/2017 DISCHARGE SUMMARY/PSYCHIATRIC PROGRESS NOTE This is a late entry, date of service 07/27/2017, covers elements not covered in my initial note of 07/27/2017. REASON FOR ADMISSION: Please refer to the admission history for details. Briefly, the patient is a 57-year-old female who presented to the [facility] Emergency Room from [facility] on account of worsening symptoms of depression after she threatened to slit her wrists or overdose on medications. She states she gets depressed this time of the year, was feeling hopeless with drop in her appetite, marked insomnia, paranoid, feeling fearful. Her symptoms had been worsened consequent to her CVA with left-sided paralysis, dysarthria, and some expressive aphasia which made communication very frustrating for her. She was deemed a potential danger, referred to the Emergency Room and then to us for psychiatric stabilization. SIGNIFICANT FINDINGS AND CLINICAL COURSE: Following admission, the patient was seen daily individually by myself, followed medically per Dr. Baird/Dr. Moore. The patient is quite depressed, withdrawn. Adjustments were made in her psychotropics and she seemed to respond to a combination of Cymbalta 60 mg a day, Remeron 7.5 mg at bedtime, Ambien 5 mg at bedtime for insomnia. Appetite improved. No active suicidal ideation prior to discharge. Consideration was given to using Abilify to augment the Cymbalta, but not felt necessary at this stage. Prior to discharge on 07/27/2017, ambulation impaired, in wheelchair. REVIEW OF SYSTEMS: No CV, , pulmonary, eye system symptoms on review. Has difficulty expressing herself as noted. MENTAL STATUS EXAM: Reasonably oriented. Speech, she is able to express herself despite the above disability. Abstraction fair, computation impaired, language function intact. Intellect average. Insight good. Judgment intact. Mood and affect was improved. No active suicidal ideation. FINAL DIAGNOSES: Major depressive disorder, recurrent, in partial remission; anxiety disorder, unspecified; impulse control disorder. Rest diagnoses as above. DISCHARGE MEDICATIONS: Please refer to the MRAD. DISCHARGE DISPOSITION: Outpatient psychiatric and medical followup at [facility]. Time for discharge day management greater than 30 minutes. DOROTA SMITH MD DR: MARLENI/lisette JOB#: [id number] / [id number]
== END 2017-07-27 13:30 | disposition home or self-care (01) | DRG 885 ==
LOC: GEROPSY 20:43
PROVIDERS: ADMIT Psychiatry & Neurology Psychiatry; ATTEND Psychiatry & Neurology Psychiatry
DX: F33.3 Major depressive disorder, recurrent, severe with psychotic symptoms (principal); R45.851 Suicidal ideations; G62.9 Polyneuropathy, unspecified; I69.354 Hemiplegia and hemiparesis following cerebral infarction affecting left non-dominant side; F41.9 Anxiety disorder, unspecified; F63.9 Impulse disorder, unspecified; I10 Essential (primary) hypertension; Z66 Do not resuscitate; R41.841 Cognitive communication deficit; Z60.2 Problems related to living alone; I99.8 Other disorder of circulatory system; I69.398 Other sequelae of cerebral infarction
CPT/HCPCS: 36415; 76705; 80053; 80061; 80076; 81001; 82306; 82607; 83036; 83540; 83550; 83735; 84436; 84443; 84480; 85025; 86593; 93005; 97110; 97530; 97535